=== PATIENT | female | born 1950 | race Caucasian/White ===

== ENCOUNTER 2019-09-21 14:22 | Emergency (ER) | payer BC, MEDICARE ==
[~2019-09-21] VITALS: Ht 160 cm; Wt 65.9 kg
[2019-09-21] MEDS ORDERED: GABA-1201 PO (14:28)
[2019-09-21] MEDS ORDERED: TRAZ-257 PO (14:28)
[2019-09-21] MEDS ORDERED: DULO-8 PO (14:28)
[2019-09-21] MEDS ORDERED: ONDANSETRON HCL 4 MG/2 ML VIAL IVP ONE (15:15)
[2019-09-21] MEDS ORDERED: SODIUM CHLORIDE 0.9% 1,000 ML IV ONE ×2 (15:15→16:00)
[2019-09-21] MEDS ORDERED: LORazepam 2 MG/ML VIAL IVP ONE (15:15)
[2019-09-21 15:27] LABS: BASOPHILS % (AUTO) 0.1 % (0.0-2.0); EOSINOPHILS % (AUTO) 0 % (1.0-6.0); HEMATOCRIT 48.2 % (36-46); HEMOGLOBIN 15.9 g/dL (12.0-16.0); LYMPHOCYTES # (AUTO) 0.5 K/uL (1.0-4.8); LYMPHOCYTES % (AUTO) 4.9 % (22.0-44.0); MEAN CORPUSCULAR HEMOGLOBIN 35.7 pg (26.0-34.0); MEAN CORPUSCULAR HGB CONC 32.9 G/dL (31.0-37.0); MEAN CORPUSCULAR VOLUME 108 fL (80-100); MONOCYTES # (AUTO) 0.6 K/uL (0.1-1.0); MONOCYTES % (AUTO) 5.5 % (2.0-9.0); NEUTROPHILS # (AUTO) 9.3 K/uL (1.8-7.7); PLATELET COUNT (AUTO) 218 K/uL (150-450); RED BLOOD CELL COUNT(AUTO) 4.44 MIL/uL (4.00-5.20); RED CELL DISTRIBUTION WIDTH 15.3 % (11.5-14.5)
[2019-09-21 15:31] LABS: NEUTROPHILS % (AUTO) 89.5 % (40.0-70.0)
[2019-09-21 15:41] LABS: CALCIUM, TOTAL 8.9 mg/dL (8.8-10.5); CREATININE 1.09 mg/dL (0.60-1.30); POTASSIUM 4.3 mmol/L (3.5-5.1)
[2019-09-21 15:47] LABS: ALBUMIN 4.9 g/dL (3.4-5.0); BILIRUBIN,TOTAL 0.8 mg/dL (0.1-1.0); MAGNESIUM 1.7 mg/dL (1.80-2.40); TOTAL PROTEIN, SERUM 9.5 g/dL (6.4-8.2)
[2019-09-21] MEDS ORDERED: MAGNESIUM SULFATE 1 GM in DEXTROSE 5%-WATER 50 ML IV ONE (16:00)
[2019-09-21] MEDS ORDERED: ChlordiazePOXIDE HCL 25 MG CAPSULE PO ONE (16:00)
[2019-09-21 17:30] VITALS: BP 129/73
== END 2019-09-21 18:26 | disposition home or self-care (01) ==
LOC: EMS 14:24
DX: F10.239 Alcohol dependence with withdrawal, unspecified (principal); F32.9 Major depressive disorder, single episode, unspecified; Z88.8 Allergy status to other drugs, medicaments and biological substances; Y90.5 Blood alcohol level of 100-119 mg/100 ml
CPT/HCPCS: 80053; 83690; 83735; 84484; 85025; 93005; 96361; 96365; 96375; 99291; G0480; J2060; J2405; J3475; J7030; J7060; 36415-L1; 36415-TC